=== PATIENT | female | born 1955 | race Caucasian/White ===

== ENCOUNTER 2025-08-02 09:08 | Emergency (ER) | payer MEDICARE, OTHER, SELFPAY ==
[2025-08-02 09:24] VITALS: BP 124/65
[2025-08-02] MEDS: VALIUM 1 MG PO (11:16)
--- NOTE | 2025-08-02 11:46 | ED.GENMED ---
History of Present Illness
General
Chief Complaint: Anxiety
Time Seen by Provider: 08/02/25 10:33
History of Present Illness
History of Present Illness:
69-year-old female with history of anxiety and depression presenting to the emergency department for increased anxiety and panic. Patient reports ongoing issues, however has escalated in the past month. She has been following with her primary care
doctor for her anxiety, has been on Lexapro and Ativan as needed. She is having difficulty getting in with psychiatry, recently did not get an appointment, however not till August. Her medications are not working and she is getting conflicting
answers from her primary care doctor regarding her medications. She notes that she has had a difficult year with some medical ailments, lost her sister. She also has a lot of anxiety about the way she spends her day. Denies SI. Arrives with her
daughters. Denies additional acute medical complaint
Phy Exam
Physical Exam
Physical Exam:
General: Well-appearing, no clinical signs of dehydration, nontoxic and in no acute distress
HEENT: protecting airway
Neck: appears supple
CV: Normal heart rate
Resp: No accessory muscle use, no increased work of breathing
Abd: No distention
Extremities: No deformities, no swelling, no erythema, pulses and sensation intact
Neuro: alert, no focal neurologic deficit
: deferred
Rectal: deferred
Psych: Tearful, anxious
Skin: Intact
Course
Orders/Labs/Results
Orders:
Orders
08/02/25 09:29
Crisis Consult Urgent
Reason for Consult: anxiety, panic attacks.
08/02/25 10:59
Diazepam [Valium] 1 mg PO NOW STA
08/02/25 12:32
PSYCHIATRY CONSULT Urgent
Consulting Provider: Conor Espinoza
Was physician already notified: Yes
Reason for consult: anxiety
08/02/25 13:41
Diazepam [Valium] 2 mg PO NOW STA
Vital Signs
Initial and Last Documented VS:
Initial Vital Signs
Temp Pulse Resp BP Pulse Ox
98.6 F 87 18 124/65 96
08/02/25 09:24 08/02/25 09:24 08/02/25 09:24 08/02/25 09:24 08/02/25 09:24
Last Documented Vital Signs
Temp Pulse Resp BP Pulse Ox
98.6 F 87 18 124/65 96
08/02/25 09:24 08/02/25 09:24 08/02/25 09:24 08/02/25 09:24 08/02/25 11:47
MDM/Problems Addressed
MDM/Problems Addressed:
69-year-old female with history of anxiety and depression presenting to the emergency department for increased anxiety and panic. Vital signs are normal.
On exam, patient resting comfortably, however does appear anxious. Denies any SI or HI, does not appear to be a threat to herself or others. Patient offered diazepam for her anxiety. Will consult with crisis regarding further management and
possible resources
15:30 -patient initially seen by crisis, and given insurance, unable to provide much assistance as far as resources or placement. Thus, did consult with psychiatry who was able to see patient at bedside regarding her anxiety and her medications.
They recommend that she continue the Xanax twice daily. Patient had been having her dose and only taking half of 0.25 mg. Psychiatry recommending that she continue the Xanax as prescribed, 0.25 mg twice daily. He also notes the patient is on
trazodone, recommends changing to Remeron. Will prescribe. Otherwise patient has psychiatry appointment already set up. Feel stable for discharge. Discussed with daughters at bedside. Return precautions discussed
*Pulse Oximetry
SaO2: 96
Oxygen Mode of Delivery: Room air
Patient hypoxic: no
*Critical Care Note
Total Time (30-74mins, 75-104mins- exclusive of procedures): Not Applicable
ED Attending Note
-
Portions of this chart may have been created with voice recognition software.� Occasional wrong word or��sound alike� substitutions may have occurred due to the inherent limitations of voice recognition software.
Discharge Plan
Departure
Referrals:
Collins Dempsey MD [Family Provider]
Interventions
Interventions:
*Risk Screen - Suicide Last Done: 08/02/25 09:24
*General Assessment Last Done: 08/02/25 09:24
*Neglect/Abuse Screening Last Done: 08/02/25 09:24
Discharge Date and Time
Print Language: MONGOLIAN
[2025-08-02] MEDS: VALIUM 2 MG PO (13:48)
--- NOTE | 2025-08-02 15:35 | CS.PSYCHR ---
Consult Summary - Psychiatry
-
pt seen by me in ED, consult requested for panic attack this am, as well as over past two weeks
69 yo woman brought to ED by daughters due to severe anxiety this morning on arising. Has had treatment for depression and anxiety for years, ever since breast cancer diagnosis in her late fourties. Has been on lexapro and xanax since, recently
became concerned about xanax so tried to stop it. Was only taking 0.25 mg per day (generally breaking into ttwo 0.125 mg halves) which she has tried going back onto with only limited relief. Fearful she will not be able to cope with this, wants to
be back to old sself-sufficient self. has been trying to get outpatient psychiatric care but has found it difficult to arrange in a timely way. Very fearful of going home, had thought about going to an acute residential program but aware that
medicare will not cover the cost.
Pt has been cancer free, only medical issues are her depression/anxiety and osteoarthritis. Never hospitalized. on trazodone, benadryl, and recently on buspar.
Born and raised in [place], attended [employer] then [employer] then back to [employer]. 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 One daughter from first marriage, then and
gained stepdaughter. Very close. Sister last year from acute leukemia. Parents , in their 80s.
Lives alone. Daughters live nearby, with children. Brother on way here from [place], has two older sisters also close (but not as close as 'baby sister' who .)
No current complaints, just fearful of what might happen.
On exam pt is pleasant, well dressed (though in pajamas) neat. No thoughts of suicide at present, says her main issue is anxiety. no signs of cognitive impairment, no psychosis.
Impression: Panic disorder
Rec: Informed pt that until she is back in [facility] care would continue the low dose xanax she has been used to, up to 0.25 mg bid. would change trazodone to remeron 7.5 mg, stop buspar. Encouraged to keep appt in August
== END 2025-08-02 15:38 | disposition home or self-care (01) ==
LOC: EMR 09:08
PROVIDERS: CONSULT PHYSICIAN Psychiatry & Neurology Psychiatry; EMERGENCY PHYSICIAN Student in an Organized Health Care Education/Training Program; FAMILY PHYSICIAN Family Medicine
DX: F41.9 Anxiety disorder, unspecified (principal); F41.0 Panic disorder [episodic paroxysmal anxiety]; F32.A Depression, unspecified; T42.4X6A Underdosing of benzodiazepines, initial encounter; Z91.128 Patient's intentional underdosing of medication regimen for other reason
CPT/HCPCS: 99283